=== PATIENT | female | born 1975 | race Hispanic/Latino ===

== ENCOUNTER 2022-03-09 14:52 | Emergency (ER) | payer OTHER ==
[2022-03-09] MEDS ORDERED: ACETAMINOPHEN 500 MG TABLET ONE (17:57)
[2022-03-09] MEDS ORDERED: ACETAMINOPHEN 500 MG TABLET PO ONE (18:00)
[2022-03-09] MEDS ORDERED: IBUP-2070 PO (21:28)
[2022-03-09 21:35] VITALS: BP 118/82
== END 2022-03-09 21:42 | disposition home or self-care (01) ==
LOC: EDH 14:52
DX: S82.401A Unspecified fracture of shaft of right fibula, initial encounter for closed fracture (principal); M54.50 Low back pain, unspecified; M54.2 Cervicalgia; M25.562 Pain in left knee; Z79.1 Long term (current) use of non-steroidal anti-inflammatories (NSAID); X58.XXXA Exposure to other specified factors, initial encounter; Y93.89 Activity, other specified; Y92.89 Other specified places as the place of occurrence of the external cause; Y99.8 Other external cause status
CPT/HCPCS: 29515; 70450; 72125; 72131; 73562; 73610; 81025

== ENCOUNTER 2023-05-28 23:35 | Emergency (ER) | payer OTHER ==
[~2023-05-28] VITALS: Ht 160 cm; Wt 63.5 kg
[~2023-05-28 23:35] MED LIST: IBUP-2070 PO
[2023-05-29 00:10] LABS: BASOPHILS # (AUTO) 0.05 K/uL (0.00-0.20); BASOPHILS % (AUTO) 0.6 % (0.0-5.0); EOSINOPHILS # (AUTO) 0.26 K/uL (0.00-0.70); EOSINOPHILS % (AUTO) 3.2 % (0.0-8.0); HEMATOCRIT 36.7 % (36-48); IMMATURE GRANULOCYTE ABSOLUTE 0.03 K/uL (0-1); LYMPHOCYTES # (AUTO) 1.4 K/uL (1.0-4.8); MEAN CORPUSCULAR HEMOGLOBIN 30.3 pg (27.0-33.0); MEAN CORPUSCULAR VOLUME 91.8 fL (79-99); MONOCYTES # (AUTO) 0.4 K/uL (0.1-1.0); MONOCYTES % (AUTO) 5.2 % (3.0-13.0); NEUTROPHILS # (AUTO) 6.1 K/uL (1.8-7.7); NEUTROPHILS % (AUTO) 73.6 % (40.0-77.0); PLATELET COUNT (AUTO) 350 K/uL (130-400); WHITE BLOOD COUNT (AUTO) 8.2 K/uL (4.8-10.8)
[2023-05-29 00:18] LABS: POTASSIUM 3.8 mmol/L (3.5-5.1)
[2023-05-29 00:23] LABS: SARS-CoV-2, RNA, NAAT NEGATIVE SARS CoV-2 (NEGATIVE)
[2023-05-29 00:26] LABS: INFLUENZA TYPE A Negative For Type A (NEGATIVE); INFLUENZA TYPE B Negative For Type B (NEGATIVE)
[2023-05-29 00:30] LABS: CREATINE KINASE, TOTAL 172 U/L (21-232)
[2023-05-29 01:16] LABS: ALBUMIN 3.2 g/dL (3.5-5.0); BILIRUBIN,DIRECT 0.1 mg/dL (0.0-0.3); BILIRUBIN,TOTAL 0.3 mg/dL (0.2-1.0); MAGNESIUM 1.7 mg/dL (1.80-2.40); TOTAL PROTEIN, SERUM 7.6 g/dL (6.0-8.3)
[2023-05-29 01:18] LABS: APPEARANCE,URINE CLEAR (CLEAR); BILIRUBIN,URINE NEGATIVE (NEGATIVE); COLOR,URINE COLORLESS (YELLOW); GLUCOSE, URINE (UA) NEGATIVE (NEGATIVE); KETONES,URINE NEGATIVE (NEGATIVE); LEUKOCYTE ESTERASE ,URINE 75 Leu/uL (NEGATIVE); NITRATE,URINE NEGATIVE (NEGATIVE); OCCULT BLOOD,URINE NEGATIVE (NEGATIVE); PROTEIN,URINE NEGATIVE (NEGATIVE); UROBILINOGEN,URINE 0.2 mg/dL (0.2-1.0)
[2023-05-29 01:24] LABS: AMPHET/METH SCREEN,URINE NEGATIVE (NEGATIVE); BARBITURATE SCREEN, URINE NEGATIVE (NEGATIVE); BENZODIAZEPINES SCREEN,URINE POSITIVE (NEGATIVE); CANNABINOID SCREEN,URINE NEGATIVE (NEGATIVE); COCAINE SCREEN,URINE POSITIVE (NEGATIVE); OPIATE SCREEN,URINE NEGATIVE (NEGATIVE); PHENCYCLIDINE SCREEN,URINE NEGATIVE (NEGATIVE)
[2023-05-29 01:32] LABS: ADD UA MICROSCOPIC YES
[2023-05-29 01:33] LABS: MUCUS,URINE RARE LPF (None Seen); SQUAMOUS EPITHELIAL CELL,UR RARE /HPF (0-2)
[2023-05-29] MEDS ORDERED: MAGNESIUM 2GM PREMIX 50ML 50 ML IV SCH (02:00)
[2023-05-29] MEDS ORDERED: CEFTRIAXONE 1G VIAL IVPB ONE (02:00)
[2023-05-29] MEDS ORDERED: CYCL-309 PO (02:21)
[2023-05-29 03:48] VITALS: BP 115/62; PULSE 74; RESP 18; O2SAT 98
== END 2023-05-29 03:50 | disposition home or self-care (01) ==
LOC: EDH 23:35
DX: R07.89 Other chest pain (principal); M79.7 Fibromyalgia; F41.9 Anxiety disorder, unspecified; Z20.822 Contact with and (suspected) exposure to COVID-19; Z98.890 Other specified postprocedural states
CPT/HCPCS: 99285; 71045; 87635; 82550 ×2; 80076; 83735; 84484; 82330; 80048; 80305; 85025; 85378; 85651; 87088; 87804 ×2; 36415; 93005; 81001; 96365; 96368; C9803; J3475; J0696

== ENCOUNTER 2023-10-30 19:24 | Observation (INO) | payer OTHER ==
[~2023-10-30] VITALS: Ht 162.6 cm; Wt 76.8 kg
[~2023-10-30 19:24] MED LIST changes: +CYCL-309 PO; +LEVE-43 PO
[2023-10-30] MEDS: METOCLOPRAMIDE 10 MG/2 ML VIAL IVP STA (19:41)
[2023-10-30] MEDS: 0.9%NACL 1000ML 1,000 ML IV SCH (19:41)
[2023-10-30 19:52] LABS: BASOPHILS # (AUTO) 0.08 K/uL (0.00-0.20); BASOPHILS % (AUTO) 0.9 % (0.0-5.0); EOSINOPHILS # (AUTO) 0.51 K/uL (0.00-0.70); EOSINOPHILS % (AUTO) 5.4 % (0.0-8.0); HEMATOCRIT 39.8 % (36-48); IMMATURE GRANULOCYTE ABSOLUTE 0.04 K/uL (0-1); LYMPHOCYTES # (AUTO) 2.4 K/uL (1.0-4.8); LYMPHOCYTES % (AUTO) 25.3 % (21.0-51.0); MEAN CORPUSCULAR HEMOGLOBIN 30.7 pg (27.0-33.0); MEAN CORPUSCULAR HGB CONC 33.4 g/dL (32.0-36.0); MEAN CORPUSCULAR VOLUME 91.9 fL (79-99); MONOCYTES # (AUTO) 0.7 K/uL (0.1-1.0); MONOCYTES % (AUTO) 7.2 % (3.0-13.0); NEUTROPHILS # (AUTO) 5.7 K/uL (1.8-7.7); NEUTROPHILS % (AUTO) 60.8 % (40.0-77.0); PLATELET COUNT (AUTO) 359 K/uL (130-400); RED BLOOD CELL COUNT(AUTO) 4.33 MIL/uL (4.00-5.50); RED CELL DISTRIBUTION WIDTH 13.1 % (11.0-15.5); WHITE BLOOD COUNT (AUTO) 9.4 K/uL (4.8-10.8)
[2023-10-30 20:21] LABS: AMMONIA 24 umol/L (11-32); CREATINE KINASE, TOTAL 34 U/L (21-232)
[2023-10-30 20:27] LABS: ALBUMIN 3.4 g/dL (3.5-5.0); BILIRUBIN,TOTAL 0.2 mg/dL (0.2-1.0); CREATININE 0.9 mg/dL (0.5-1.0); POTASSIUM 4.1 mmol/L (3.5-5.1); TOTAL PROTEIN, SERUM 7.6 g/dL (6.0-8.3)
[2023-10-30] MEDS: CEFTRIAXONE 1G VIAL IVPB ONE (20:51)
[2023-10-30] MEDS: SOLU-MEDROL 125MG VIAL IVP ONE (20:51)
[2023-10-30 21:08] LABS: APPEARANCE,URINE CLEAR (CLEAR); BILIRUBIN,URINE NEGATIVE (NEGATIVE); COLOR,URINE LIGHT-YELLOW (YELLOW); GLUCOSE, URINE (UA) NEGATIVE (NEGATIVE); KETONES,URINE NEGATIVE (NEGATIVE); LEUKOCYTE ESTERASE ,URINE NEGATIVE Leu/uL (NEGATIVE); NITRATE,URINE NEGATIVE (NEGATIVE); OCCULT BLOOD,URINE SMALL (NEGATIVE); PH,URINE 6.5 (5.0-8.0); PROTEIN,URINE NEGATIVE (NEGATIVE); UROBILINOGEN,URINE 0.2 mg/dL (0.2-1.0)
[2023-10-30 21:09] LABS: ADD UA MICROSCOPIC YES
[2023-10-30 21:11] LABS: BACTERIA,URINE RARE /HPF (None Seen); MUCUS,URINE RARE LPF (None Seen); SQUAMOUS EPITHELIAL CELL,UR FEW /HPF (0-2)
[2023-10-30 21:16] LABS: AMPHET/METH SCREEN,URINE NEGATIVE (NEGATIVE); BARBITURATE SCREEN, URINE NEGATIVE (NEGATIVE); BENZODIAZEPINES SCREEN,URINE POSITIVE (NEGATIVE); CANNABINOID SCREEN,URINE NEGATIVE (NEGATIVE); COCAINE SCREEN,URINE NEGATIVE (NEGATIVE); OPIATE SCREEN,URINE POSITIVE (NEGATIVE); PHENCYCLIDINE SCREEN,URINE NEGATIVE (NEGATIVE)
[2023-10-30] MEDS: CEFTRIAXONE 1G VIAL IV SCH (22:30)
[2023-10-30] MEDS ORDERED: CYCLOBENZAPRINE HCL 10 MG TABLET PO PRN (22:30)
[2023-10-30] MEDS ORDERED: ONDANSETRON 4MG INJ IV PRN (22:30)
[2023-10-30] MEDS ORDERED: ACETAMINOPHEN 325 MG TAB PO PRN ×2 (22:30)
[2023-10-31] VITALS (8 sets, daily range): BP systolic 99–138; BP diastolic 54–82; PULSE 71–98; RESP 18–20; O2SAT 96–98
[2023-10-31] MEDS: IBUPROFEN 600 MG TABLET PO PRN (02:44)
[2023-10-31 05:41] LABS: BASOPHILS # (AUTO) 0.02 K/uL (0.00-0.20); BASOPHILS % (AUTO) 0.2 % (0.0-5.0); HEMATOCRIT 39.3 % (36-48); IMMATURE GRANULOCYTE ABSOLUTE 0.04 K/uL (0-1); LYMPHOCYTES % (AUTO) 11.7 % (21.0-51.0); MEAN CORPUSCULAR HEMOGLOBIN 30.2 pg (27.0-33.0); MEAN CORPUSCULAR HGB CONC 33.3 g/dL (32.0-36.0); MEAN CORPUSCULAR VOLUME 90.6 fL (79-99); MONOCYTES % (AUTO) 0.3 % (3.0-13.0); NEUTROPHILS # (AUTO) 7.7 K/uL (1.8-7.7); NEUTROPHILS % (AUTO) 87.3 % (40.0-77.0); PLATELET COUNT (AUTO) 390 K/uL (130-400); RED BLOOD CELL COUNT(AUTO) 4.34 MIL/uL (4.00-5.50); WHITE BLOOD COUNT (AUTO) 8.8 K/uL (4.8-10.8)
[2023-10-31 06:01] LABS: ALBUMIN 3.4 g/dL (3.5-5.0); BILIRUBIN,TOTAL 0.3 mg/dL (0.2-1.0); CREATININE 0.8 mg/dL (0.5-1.0); MAGNESIUM 1.7 mg/dL (1.80-2.40); POTASSIUM 3.9 mmol/L (3.5-5.1); TOTAL PROTEIN, SERUM 8.5 g/dL (6.0-8.3)
[2023-10-31 07:03] LABS: ERYTHROCYTE SEDIMENTATION RATE 31 MM/HR (0-20)
[2023-10-31 07:26] LABS: LYMPHOCYTES % (MANUAL) 17 % (22-44); MONOCYTES % (MANUAL) 1 % (2-9); REACTIVE LYMPHOCYTES 1 % (0-0); SEGMENTED NEUTROPHILS % 81 % (40-70); TOTAL CELLS COUNTED 100
[2023-10-31 07:27] LABS: MAN.DIFF COMMENT-IMPRESSION MANUAL DIFFERENTIAL; PLATELET MORPHOLOGY COMMENT ADEQUATE
[2023-10-31] MEDS: LEVETIRACETAM 500 MG TABLET PO SCH (08:57)
[2023-10-31] MEDS: FAMOTIDINE 20MG TAB PO SCH (08:57)
[2023-10-31] MEDS: DiphenhydrAMINE HCL 50 MG/ML VIAL IV PRN (09:23)
[2023-10-31] MEDS: KETOROLAC 15MG/ML VIAL (15MG/ML) IV PRN (09:24)
[2023-10-31] MEDS: PROCHLORPERAZINE 10MG/2ML INJ IV PRN (09:28)
[2023-10-31] MEDS: ZOLPIDEM TARTRATE 5 MG TAB PO PRN (22:50)
[2023-11-01] VITALS (7 sets, daily range): BP systolic 98–113; BP diastolic 58–73; PULSE 66–91; RESP 18–20; O2SAT 98–99
[2023-11-01] MEDS ORDERED: CEFD300C3 PO (15:48)
== END 2023-11-01 23:53 | disposition short-term general hospital (02) ==
LOC: EDH 19:24 → EDHIP 19:25 → 3CH 10-31 01:06
PROVIDERS: ADMIT Internal Medicine; ATTEND Internal Medicine
DX: J98.4 Other disorders of lung (principal); F11.10 Opioid abuse, uncomplicated; F13.10 Sedative, hypnotic or anxiolytic abuse, uncomplicated; F41.1 Generalized anxiety disorder; R51.9 Headache, unspecified; G40.909 Epilepsy, unspecified, not intractable, without status epilepticus; M79.7 Fibromyalgia; G89.29 Other chronic pain
CPT/HCPCS: 96361; 96365; 96375 ×2; 99285; 82550; 84484; 80053 ×2; 80305; 82140; 85025 ×2; 81001; 36415 ×2; 71045; 70450; 93005; 96376 ×2; 83735; 85651; 87040 ×2; 80177; G0378 ×49; J7030; J2919; J0696 ×3; J2765; J1200 ×3; J0780 ×3; J1885 ×4